=== PATIENT | female | born 1980 | race Caucasian/White ===

== ENCOUNTER 2024-02-15 17:36 | Emergency (ER) | payer MEDICARE, SELFPAY ==
--- NOTE | ~2024-02-15 | XR_ITS ---
EXAMINATION: XR chest 1V, XR abdomen 1V 02/15/2024 8:12 PM CLINICAL HISTORY: Swallow a plastic foreign body COMPARISON: None FINDINGS: Clear lungs. No pleural effusion or pneumothorax. Normal heart size and mediastinal contours. Surgical clips overlie the right upper abdomen. Intrauterine device overlies the pelvis. Nonobstructing bowel gas pattern. Moderate colonic stool burden. No radiopaque foreign body identified. XR/XR abdomen 1V IMPRESSION: No radiopaque foreign body identified. Of note, plastic is often nonradiopaque and therefore if more accurate localization is desired, dedicated CT may be considered.
--- NOTE | ~2024-02-15 | XR_ITS ---
EXAMINATION: XR chest 1V, XR abdomen 1V 02/15/2024 8:12 PM CLINICAL HISTORY: Swallow a plastic foreign body COMPARISON: None FINDINGS: Clear lungs. No pleural effusion or pneumothorax. Normal heart size and mediastinal contours. Surgical clips overlie the right upper abdomen. Intrauterine device overlies the pelvis. Nonobstructing bowel gas pattern. Moderate colonic stool burden. No radiopaque foreign body identified. XR/XR chest 1V IMPRESSION: No radiopaque foreign body identified. Of note, plastic is often nonradiopaque and therefore if more accurate localization is desired, dedicated CT may be considered.
[2024-02-15 17:48] VITALS: BP 132/75; BP 140/80; PULSE 70; PULSE 77; RESP 16; TEMP 37.2; O2SAT 95; O2SAT 98; BMI 37.2
[2024-02-15 18:00] VITALS: BP 111/65; PULSE 65; RESP 18; TEMP 37.1; O2SAT 97
--- NOTE | 2024-02-15 18:06 | MHC.EDTECH ---
PATIENT LOVE FROM [facility] ,THIS PCT WAS COVERING PATIENT OBSERVER BREAK ,SECURITY EFFIE ASKED SHUT OFF WORKER AND RN GRACE WHO WAS THE PATIENT NURSE ,AND BOTH RN SAID THE PATIENT DOES NOT NEED TO BE TECHNICAL REPORT WRITER ,PATIENT WAS PAT DOWN BY SECURITY .
--- NOTE | 2024-02-15 18:38 | ED_ITS ---
HPI - General Adult General Chief complaint: Skin/Abscess/Foreign Body Stated complaint: SWALLOWED 3 PLASTIC BUTTER CUPS Time Seen by Provider: 02/15/24 18:17 Source: patient and EMS Mode of arrival: EMS Limitations: no limitations History of Present Illness HPI narrative: 43-year-old female who is inpatient at [facility] for psych, patient brought in by ambulance for further evaluation after swallowing 3 plastic butter cups about 5 hours ago, patient has no abdominal pain, no nausea, no vomiting. Patient declined any other coingestion. Patient did because feeling depressed in the attempt of suicide. Able to swallow fluids and her own saliva no drooling. Related Data Allergies Allergy/AdvReac Type Severity Reaction Status Date / Time haloperidol [From Haldol] Allergy Unknown Verified 02/15/24 17:51 latex Allergy Unknown Verified 02/15/24 17:51 olanzapine [From Zyprexa] Allergy Unknown Verified 02/15/24 17:51 adhesive AdvReac Unknown Verified 02/15/24 17:51 Review of Systems 2 Review of Systems: All other systems are reviewed and are negative Constitutional: Reports as per HPI and Reports no additional constitutional complaints Eyes: Reports as per HPI and Reports no additional eye complaints Reports system reviewed and no additional complaints, except as documented Cardiovascular: Reports as per HPI and Reports no additional cardiovascular complaints Respiratory: Reports as per HPI and Reports no additional respiratory complaints Gastrointestinal: Reports as per HPI and Reports no additional gastrointestinal complaints Genitourinary: Reports no additional female genitourinary complaints Musculoskeletal: Reports no additional musculoskeletal complaints Skin/Breast: Reports system reviewed and no additional complaints, except as docu Psychiatric: Reports no additional psychiatric complaints Endocrine: Reports no additional endocrine complaints Hematologic/Lymphatic: Reports no additional hematologic/lymphatic complaints Allergic/Immunologic: Reports no additional allergic/immunologic complaints Reports system reviewed and no additional complaints, except as documented and Reports Abnormal speech present [facility] Social History Social History Smoked in Last 30 Days: No Use of substances other than those prescribed or required for medical reasons: No Advance Directives: No Advance Directives Information Provided: No Suicidal Behavior: History of suicide attemps and Self-injurious behavior Current/Past Psychiatric Disorders: Chronic mental illess Risk Factors Comment: PT IS ON A PSYCHIATRIC INPATIENT UNIT AT [facility] Do you have a plan to hurt others: No Plan Patient : No Physical Exam ED Vital Signs: Vital Signs - 24 hr 02/15/24 17:48 02/15/24 18:00 02/15/24 19:20 Temperature 99 F 98.7 F 98.6 F Pulse Rate 77 65 74 Respiratory Rate 16 18 16 Blood Pressure 132/75 111/65 115/57 L Pulse Oximetry 95 97 98 Oxygen Delivery Method Room Air Room Air Room Air 02/15/24 22:00 Temperature Pulse Rate Respiratory Rate 15 Blood Pressure Pulse Oximetry Oxygen Delivery Method BMI result Body Mass Index 37.2 Vital signs have been reviewed and appear to be correct. Blood pressure elevated. Heart rate normal. Respiratory rate normal. Temperature normal. Oxygen saturation normal. Appearance: Alert. Oriented X3. No acute distress. Head: Normal external exam. Normocephalic. Atraumatic. No Golden signs noted. No raccoon eyes noted Eyes: PERRLA. EOMI. Conjunctiva and sclera normal. Eyelids normal. ENT: TM's Normal. Pharynx normal. Uvula midline. Moist mucous membranes. No trismus noted. No drooling noted. No muffled voice noted. Neck: Normal inspection. Neck supple. FROM. No adenopathy. Thyroid Normal. No meningeal signs. No neck mass noted. CVS: Normal heart rate and rhythm. Heart sound normal. No murmurs noted. Pulses normal throughout. Respiratory: No respiratory distress. Painless inspiration. Breath sounds normal. No wheezes/rales/rhonchi noted. Chest nontender. No accessory muscle usage noted or decreased air movement noted. Abdomen: Soft and nontender. Bowel sounds normal in all 4 quadrants. No distention noted. No organomegaly noted. No visible injury noted. Back: No CVA tenderness. Full range of motion noted. Skin: Skin warm and dry. Normal skin color. Normal skin turgor. No rashes/lesions/lacerations noted. Extremities: No lower extremity edema. Extremities exhibit normal range of motion. Extremities nontender. Neuro: Oriented X 3. Cranial nerve exam: II-XII are grossly intact No motor deficit. No sensory deficit. Reflexes normal. Patient Orientation: Person, Place, Time and Situation, okay hygiene and grooming. Fair eye contact, attentive, no tics or tremors. Level of Consciousness: Awake, Appropriate and Alert Patient Behavior: Appropriate, Guarded, Cooperative and Anxious Mood Description: Constricted, Blunted and Apprehensive Affect Description: Constricted, Blunted and Apprehensive Patient Cognition Impaired: No Ability to Follow Directions: Excellent Speech Pattern: Clear, Appropriate and Spontaneous Speech, nonpressured, spontaneous with regular rate and rhythm, normal volume and prosody. No dysarthria. Memory Description: Intact, Immediate Intact and Short Term Intact Hallucinations: None Delusions: Not Present Thought Process: Intact Thought Content: positive for Intact, denies Homicidal Ideation, admits to suicidal ideation. Depressive Symptoms: Not present. Judgement and Insight: Limited but adequate. Course Reevaluation(s) Reevaluation #1: 43-year-old female who swallowed 3 small plastic container of father, patient was able to swallow with no difficulty, patient currently resides in inpatient locked unit at [facility] still complaining of depression with SI patient is under section 21. No abdominal pain, no nausea, no vomiting, chest/abdomen x-ray showed no free air or obstruction. No further medical intervention is needed at this point. Time: 23:11 Medications Administered Discontinued Medications Generic Name Dose Route Start Last Admin Trade Name Freq PRN Reason Stop Dose Admin Sodium Chloride 1,000 mls @ 999 mls/hr 02/15/24 18:17 02/15/24 18:57 Ns IV 02/15/24 19:17 Not Given .[id number] ONE Medical Decision Making Differential Diagnosis Differential Diagnoses: The differential diagnosis associated with the presentation includes (Esophageal foreign body, viscus perforation, co- ingestion, medication poisoning, electrolyte derangement, UTI, alcohol overdose.) Admission/Observation Consideration of admission/observation: Escalation of care including admission/observation considered Lab Data MDM Lab Attestation statement: I reviewed the patient's lab results. 02/15/24 19:14 02/15/24 19:14 Labs: Lab Results 02/15/24 02/15/24 Range/Units 19:14 19:50 WBC 10.4 (4.8-10.8) X10*3/uL RBC 3.87 L (4.20-5.50) X10*6/uL Hgb 11.8 L (12.0-16.0) g/dl Hct 34.2 L (37.0-47.0) % MCV 88.4 (80.0-98.0) fL MCH 30.5 (27.0-33.0) pg MCHC 34.5 (31.0-35.0) g/dl RDW 13.5 (11.0-16.0) % Plt Count 252 (160-400) X10*3/uL MPV 10.2 (9.4-12.3) fL Immature Gran % (Auto) 0.2 (0.0-0.4) % Neut % (Auto) 56.8 (45-73) % Lymph % (Auto) 33.8 (20-40) % [place] % (Auto) 5.9 (2-11) % Eos % (Auto) 2.5 (0-4) % Baso % (Auto) 0.8 (0-2) % Lymph # (Auto) 3.5 (1.2-4.9) X10*3/uL [place] # (Auto) 0.6 (0.1-1.2) X10*3/uL Eos # (Auto) 0.3 (0.0-0.4) X10*3/uL Baso # (Auto) 0.1 (0.0-0.2) X10*3/uL Abs Immat Gran (auto) 0.02 (0.00-0.03) X10*3/uL Absolute Neuts (auto) 5.9 (2.0-8.3) x10*3/uL Absolute Nucleated RBC 0.000 (0.0-0.012) X10*3/uL Nucleated RBC % (auto) 0.0 (0.0-0.2) /100WBC Sodium 139 (135-145) mmol/L Potassium 3.9 (3.3-5.1) mmol/L Chloride 104 (96-108) mmol/L Carbon Dioxide 25 (22-29) mmol/L Anion Gap 14 (12-20) BUN 20 H (9-16) mg/dL Creatinine 0.84 (0.5-1.4) mg/dL Estim Creat Clear Calc 95.7 Estimated GFR > 60 Random Glucose 81 (60-115) mg/dL Calcium 10.3 H (8.4-10.2) mg/dL Total Bilirubin 0.3 (0.0-1.0) mg/dL Direct Bilirubin 0.1 (0.0-0.5) mg/dL AST 22 (5-31) U/L ALT 19 (0-31) U/L Alkaline Phosphatase 52 (39-117) U/L Troponin I High Sens < 2.7 (<3.5-17.0) ng/L B-Natriuretic Peptide < 10 (<100) pg/mL Total Protein 7.3 (6.5-8.0) g/dL Albumin 4.3 (3.5-5.0) g/dL Lipase 12 (8-78) U/L Urine Color Yellow Urine Appearance Clear Urine pH 6.5 (5.0-9.0) Ur Specific [place] 1.010 (1.005-1.025) Urine Protein Negative (Neg-Trace) mg/dL Urine Glucose (UA) Negative (Negative) mg/dL Urine Ketones Negative (Negative) mg/dL Urine Blood Moderate (2+) H (Negative) Urine Nitrite Negative (Negative) Ur Leukocyte Esterase Negative (Negative) Urine RBC 11-20 H (0-2) /HPF Urine WBC 0-5 (0-5) /HPF Ur Squamous Epith Cells 0-2 (0-2) /HPF Urine Bacteria None Seen (None Seen) Hyaline Casts 0-2 (0-2) /LPF Urine Test NEGATIVE (NEGATIVE) Salicylates < 5.0 L (15-30) mg/dL Urine Opiates Screen Not Detected (Not Detect) Ur Buprenorphine Scrn Not Detected (Not Detect) ng/mL Ur Oxycodone Screen Not Detected (Not Detect) ng/mL Urine Methadone Screen Not Detected (Not Detect) ng/mL Urine Fentanyl Screen Not Detected (Not Detect) Acetaminophen < 3 (<30) mcg/mL Ur Barbiturates Screen Not Detected (Not Detect) Ur Phencyclidine Scrn Not Detected (Not Detect) Ur Amphetamines Screen Not Detected (Not Detect) U Benzodiazepines Scrn Not Detected (Not Detect) Urine Cocaine Screen Not Detected (Not Detect) U Marijuana (THC) Screen Not Detected (Not Detect) Ethyl Alcohol < 10 mg/dL Independent Interpretation I performed an independent interpretation of an: Plain X-Ray (No radiopaque foreign body identified. Of note, plastic is often nonradiopaque and therefore if more accurate localization is desired, dedicated CT may be considered. ) Discharge Plan Discharge Clinical Impression: Foreign body ingestion Patient Disposition: [facility]fer [facility] Transfer Details: Patricia Pierson Print Language: Luxembourgish
--- NOTE | 2024-02-15 18:54 | PC.NURSE ---
assumed care of pt at 1900 - pt refusing iv and fluids. agreeable to labs at this time. MD Lane aware and OK'd.
[2024-02-15 19:18] LABS: MANUAL DIFF FLAG NO
[2024-02-15 19:20] VITALS: BP 115/57; PULSE 74; RESP 16; TEMP 37; O2SAT 98
[2024-02-15 19:21] LABS: Basophils Absolute Auto 0.1 X10*3/uL (0.0-0.2); Basophils Percent Auto 0.8 % (0-2); Eosinophils Absolute Auto 0.3 X10*3/uL (0.0-0.4); Eosinophils Percent Auto 2.5 % (0-4); Hematocrit 34.2 % (37.0-47.0); Hemoglobin 11.8 g/dl (12.0-16.0); Imm Gran Abs Auto 0.02 X10*3/uL (0.00-0.03); Imm Gran Pct Auto 0.2 % (0.0-0.4); Lymphocytes Absolute Auto 3.5 X10*3/uL (1.2-4.9); Lymphocytes Percent Auto 33.8 % (20-40); Mean Corpuscular HGB Conc 34.5 g/dl (31.0-35.0); Mean Corpuscular Hemoglobin 30.5 pg (27.0-33.0); Mean Corpuscular Volume 88.4 fL (80.0-98.0); Mean Platelet Volume 10.2 fL (9.4-12.3); Monocytes Absolute Auto 0.6 X10*3/uL (0.1-1.2); Monocytes Percent Auto 5.9 % (2-11); Neutrophils Absolute Auto 5.9 x10*3/uL (2.0-8.3); Neutrophils Percent Auto 56.8 % (45-73); Platelet Count 252 X10*3/uL (160-400); Red Blood Count 3.87 X10*6/uL (4.20-5.50); Red Cell Distribution Width 13.5 % (11.0-16.0); White Blood Count 10.4 X10*3/uL (4.8-10.8)
--- NOTE | 2024-02-15 19:21 | MHC.EDTECH ---
THIS PCT ASSUMED CARE OF PATIENT AT 1900 ,VITALS TAKEN ,BLOOD DRAWN AND SENT TO LAB ,PATIENT VERY AGITATED ,PATIENT REFUSED EKG ,PROVIDER ZARINA AND VIJAYA ELIZALDE IS AWARE ,1 :1 SITTER AT BESIDE .
[2024-02-15 19:42] LABS: Alanine Aminotransferase 19 U/L (0-31); Albumin Level 4.3 g/dL (3.5-5.0); Alkaline Phosphatase 52 U/L (39-117); Anion Gap 14 (12-20); Aspartate Amino Transferase 22 U/L (5-31); Bilirubin Direct 0.1 mg/dL (0.0-0.5); Bilirubin Total 0.3 mg/dL (0.0-1.0); Blood Urea Nitrogen 20 mg/dL (9-16); Calcium 10.3 mg/dL (8.4-10.2); Carbon Dioxide 25 mmol/L (22-29); Chloride 104 mmol/L (96-108); Creatinine Clr Calc Pharmacy 95.7; Estimated Glomerular Filt Rate > 60; Glucose Random 81 mg/dL (60-115); Lipase 12 U/L (8-78); Potassium 3.9 mmol/L (3.3-5.1); Sodium 139 mmol/L (135-145); Total Protein 7.3 g/dL (6.5-8.0)
[2024-02-15 19:45] LABS: B Type Natriuretic Peptide < 10 pg/mL (<100)
[2024-02-15 19:53] LABS: Acetaminophen LAB < 3 mcg/mL (<30); Ethanol < 10 mg/dL; Salicylate < 5.0 mg/dL (15-30); Troponin-I High Sensitivity < 2.7 ng/L (<3.5-17.0)
--- NOTE | 2024-02-15 19:54 | MHC.EDTECH ---
PATIENT HAD 2 [employer] SANDWICH AND TATE [employer] FOR SNACK .
[2024-02-15 19:57] LABS: Appearance Urine Clear; Color Urine Yellow; Glucose Urine UA Negative (Negative); Leukocyte Esterase Urine Negative (Negative); Nitrite Urine Negative (Negative); PH 6.5 (5.0-9.0); UMIC TRIGGER UACC YES; Urine Blood Moderate (2+) (Negative); Urine Ketones Negative (Negative); Urine Protein Negative (Neg-Trace)
[2024-02-15 19:58] LABS: Urine Pregnancy NEGATIVE (NEGATIVE)
[2024-02-15 19:59] LABS: Bacteria Urine None Seen (None Seen); Hyaline Casts Urine 0-2 /LPF (0-2); Squamous Epithelial Cell Urine 0-2 /HPF (0-2); UPreg QC Valid YES; WBC Urine 0-5 /HPF (0-5)
[2024-02-15 20:09] LABS: Amphetamine Screen Urine Not Detected (Not Detect); Barbiturates, Urine Not Detected (Not Detect); Benzodiazepines Screen Urine Not Detected (Not Detect); Buprenorphine Scr Not Detected (Not Detect); Cannabinoid Screen Urine Not Detected (Not Detect); Cocaine Screen Urine Not Detected (Not Detect); Fentanyl, urine Not Detected (Not Detect); Methadone Screen, Urine Not Detected (Not Detect); Opiate Screen Urine Not Detected (Not Detect); Oxycodone Screen Urine Not Detected (Not Detect); Phencyclidine Screen Urine Not Detected (Not Detect)
[2024-02-15 22:00] VITALS: RESP 15
--- NOTE | 2024-02-15 23:17 | PC.NURSE ---
ATTEMPTED X 2 TO CALL PARESH DELGADO TO GIVE REPORT BUT NO ANSWER. AMBULANCE TRANSPORT BEING BOOKED TO FACILITY, PT MEDICALLY CLEARED AND DISCHARGED BY
--- NOTE | 2024-02-15 23:31 | PC.NURSE ---
NURSE TO NURSE GIVEN TO PARESH MOORE
[2024-02-15 23:51] VITALS: BP 0/0; PULSE 0; RESP 16; TEMP -17.7; TEMP 0
== END 2024-02-15 23:52 ==
PROVIDERS: Emergency Provider Emergency Medicine
DX: T18.9XXA Foreign body of alimentary tract, part unspecified, initial encounter (principal); W44.B9XA Other plastic object entering into or through a natural orifice, initial encounter; Y93.89 Activity, other specified; Y92.9 Unspecified place or not applicable; Y99.9 Unspecified external cause status; R45.851 Suicidal ideations; Z04.6 Encounter for general psychiatric examination, requested by authority; Z71.89 Other specified counseling; Z79.899 Other long term (current) drug therapy
CPT/HCPCS: 36415; 71045; 74018; 80048; 80076; 80143; 80179; 80307; 81001; 81025; 83690; 83880; 84484; 85025; 99284; 99285